=== PATIENT | female | born 1985 | race Caucasian/White ===

== ENCOUNTER 2017-09-05 01:34 | Emergency (ER) | payer OTHER ==
[~2017-09-05] VITALS: Ht 165.1 cm; Wt 70.9 kg
[~2017-09-05 01:34] MED LIST: ATARAX10 MG PO; BUPRENORPHINE HC8 MG SL; COLACE100 MG PO; CYCLOBENZAPRINE10 MG PO; FLEXERIL10 MG PO; KEPPRA500 MG PO; LOPID600 MG PO; MOTRIN800 MG PO; NAPROSYN500 MG PO; NEURONTIN600 MG PO; PAXIL40 MG PO; PEN-VEE K,VEET500 MG PO; SUBOXONE 12 MG1 EACH SL; ULTRAM50 MG PO; WELLBUTRIN SR150 MG PO; XANAX0.5 MG PO; ZOLOFT50 MG PO
[2017-09-05] MEDS ORDERED: NORCO 5/3251 TABLET PO (03:02)
[2017-09-05] MEDS ORDERED: PEN-VEE K,VEET500 MG PO (03:04)
[2017-09-05 03:28] VITALS: BP 116/72
== END 2017-09-05 03:28 | disposition home or self-care (01) ==
LOC: EME 01:34
DX: K08.89 Other specified disorders of teeth and supporting structures (principal); F17.200 Nicotine dependence, unspecified, uncomplicated
CPT/HCPCS: 99281; 99283